=== PATIENT | male | born 1990 | race African-American/Black ===

== ENCOUNTER 2017-03-10 15:16 | Inpatient (IN) | payer OTHER ==
[2017-03-10 18:15] VITALS: BMI 24.2
--- NOTE | 2017-03-10 20:31 | HP ---
CIWA Score - CIWA Score Nausea/Vomitin-Mild Nausea/No Vomiting Muscle Tremors: 3 Anxiety: 3 Agitation: 3 Paroxysmal Sweats: 1-Minimal Palms Moist Orientation: 0-Oriented Tacttile Disturbances: 0-None Auditory Disturbances: 0-None Visual Disturbances: 0-None Headache: 3-Moderate CIWA-Ar Total Score: 14 Admission ROS BHS - HPI Chief Complaint: withdrawal sx Allergies/Adverse Reactions: Allergies Allergy/AdvReac Type Severity Reaction Status Date / Time No Known Allergies Allergy Verified 03/10/17 20:17 History of Present Illness: 26 years old male with long history of alcohol cocaine marijuana nicotine dependence has depression is admitted to detox Exam Limitations: No Limitations - Ebola screening Have you traveled outside of the country in the last 21 days: No Have you had contact with anyone from an Ebola affected area: No Have you been sick,other than usual withdrawal symptoms: No Do you have a fever: No - Review of Systems Constitutional: Chills, Changes in sleep, Weight Stable EENT: reports: No Symptoms Reported Respiratory: reports: No Symptoms reported Cardiac: reports: No Symptoms Reported GI: reports: Nausea, Poor Fluid Intake, Abdominal cramping : reports: No Symptoms Reported Musculoskeletal: reports: No Symptoms Reported Integumentary: reports: No Symptoms Reported Neuro: reports: Tremors Endocrine: reports: No Symptoms Reported Hematology: reports: No Symptoms Reported Psychiatric: reports: Judgement Intact, Orientated x3, Depressed Other Systems: Reviewed and Negative Patient History - Patient Medical History Hx Anemia: No Hx Asthma: No Hx Chronic Obstructive Pulmonary Disease (COPD): No Hx Cancer: No Hx Cardiac Disorders: No Hx Congestive Heart Failure: No Hx Hypertension: No Hx Hypercholesterolemia: No Hx Pacemaker: No HX Cerebrovascular Accident: No Hx Seizures: No Hx Dementia: No Hx Diabetes: No Hx Gastrointestinal Disorders: No Hx Liver Disease: No Hx Genitourinary Disorders: No Hx Sexually Transmitted Disorders: No Hx Renal Disease (ESRD): No Hx Thyroid Disease: No Hx Human Immunodeficiency Virus (HIV): No Hx Hepatitis C: No Hx Depression: Yes Hx Suicide Attempt: No Hx Bipolar Disorder: No Hx Schizophrenia: No - Patient Surgical History Past Surgical History: No Hx Neurologic Surgery: No Hx Cataract Extraction: No Hx Cardiac Surgery: No Hx Lung Surgery: No Hx Breast Surgery: No Hx Breast Biopsy: No Hx Abdominal Surgery: No Hx Appendectomy: No Hx Cholecystectomy: No Hx Genitourinary Surgery: No Hx Orthopedic Surgery: No - PPD History Previous Implant?: Yes Documented Results: Negative w/o proof Implanted On Prior R Admission?: No PPD to be Administered?: Yes - Smoking Cessation Smoking history: Current every day smoker Have you smoked in the past 12 months: Yes Aproximately how many cigarettes per day: 6 Cigars Per Day: 0 Hx Chewing Tobacco Use: No Initiated information on smoking cessation: Yes 'Breaking Loose' booklet given: 03/10/17 - Substance & Tx. History Hx Alcohol Use: Yes Hx Substance Use: Yes Substance Use Type: Alcohol, Cocaine, Marijuana Hx Substance Use Treatment: Yes - Substances Abused Alcohol Route: Oral Frequency: Daily Amount used: liquor- 3 pints, beer- 1 six pack Age of first use: 16 Date of Last Use: 03/10/17 Cocaine Route: Inhalation Frequency: Daily Amount used: 1 bags Age of first use: 23 Date of Last Use: 03/10/17 Marijuana/Hashish Route: Smoking Frequency: Daily Amount used: 8 joints Age of first use: 16 Date of Last Use: 03/10/17 Family Disease History - Family Disease History Family History: Unremarkable Admission Physical Exam BHS - Vital Signs Vital Signs: Vital Signs - 24 hr 03/10/17 18:13 Temperature 96.7 F L Pulse Rate 55 L Respiratory 16 Rate Blood Pressure 120/73 - Physical General Appearance: Yes: Nourished, Appropriately Dressed, Mild Distress, Tremorous, Irritable, Sweating, Anxious HEENTM: Yes: Hearing grossly Normal, Normal ENT Inspection, Normocephalic, Normal Voice Respiratory: Yes: Chest Non-Tender, Lungs Clear, Normal Breath Sounds, No Respiratory Distress, No Accessory Muscle Use Neck: Yes: Supple, Trachea in good position Breast: Yes: Breasts Symetrical Cardiology: Yes: Regular Rhythm, S1, S2, Bradycardia Abdominal: Yes: Non Tender, Soft Genitourinary: Yes: Within Normal Limits Back: Yes: Normal Inspection Musculoskeletal: Yes: full range of Motion, Gait Steady Extremities: Yes: Normal Inspection, Normal Range of Motion, Non-Tender, Tremors Neurological: Yes: Fully Oriented, Alert, Motor Strength 5/5, Normal Response, Depressed Affect Integumentary: Yes: Warm, Clammy Lymphatic: Yes: Within Normal Limits - Diagnostic (1) Alcohol dependence with uncomplicated withdrawal Current Visit: Yes Status: Acute (2) Cocaine dependence, uncomplicated Current Visit: Yes Status: Chronic (3) Cannabis dependence, uncomplicated Current Visit: Yes Status: Chronic (4) Nicotine dependence Current Visit: Yes Status: Acute Qualifiers: Nicotine product type: cigarettes Substance use status: in withdrawal Qualified Code(s): F17.213 - Nicotine dependence, cigarettes, with withdrawal (5) Depression (emotion) Current Visit: Yes Status: Suspected Qualifiers: Depression Type: dysthymia Qualified Code(s): F34.1 - Dysthymic disorder Cleared for Admission [facility] - Detox or Rehab [facility] Level of Care: Medically Managed Detox Regimen/Protocol: Librium [facility] Breath Alcohol Content Breath Alcohol Content: 0 Urine Drug Screen - Results Drug Screen Negative: No Urine Drug Screen Results: THC-Marijuana, DAVID-Cocaine
[2017-03-10] MEDS ORDERED: LOPERAMIDE HCL 2 MG CAPSULE PO PRN (20:32)
[2017-03-10] MEDS ORDERED: MAGNESIUM CITRATE 300 ML BOTTLE PO PRN (20:32)
[2017-03-10] MEDS ORDERED: NICOTINE POLACRILEX 2 MG GUM BUC PRN (20:32)
[2017-03-10] MEDS ORDERED: MAG HYDROX/AL HYDROX/SIMETH 30 ML UNIT-DOSE CUP PO PRN (20:32)
[2017-03-10] MEDS ORDERED: IBUPROFEN 400 MG TABLET (FP) PO PRN (20:32)
[2017-03-10] MEDS ORDERED: P-EPHED 60MG/TRIPROLIDI 2.5MG TABLET PO PRN (20:32)
[2017-03-10] MEDS ORDERED: MENTHOL/PHENOL 1 EACH UD MM PRN (20:32)
[2017-03-10] MEDS ORDERED: ACETAMINOPHEN 325 MG TABLET (FP) PO PRN (20:32)
[2017-03-10] MEDS ORDERED: MAGNESIUM HYDROX 2400MG/30ML ORAL SUSPENSION 30 ML CUP PO PRN (20:32)
[2017-03-10] MEDS ORDERED: chlordiazePOXIDE HCL 25 MG CAPSULE PO PRN (20:32)
[2017-03-10] MEDS ORDERED: hydrOXYzine PAMOATE 50 MG CAPSULE (FP) PO PRN (20:32)
[2017-03-10] MEDS ORDERED: guaiFENesin/D-METHORPHAN HB 10 ML UNIT-DOSE CUPS PO PRN (20:32)
[2017-03-10] MEDS: diphenhydrAMINE HCL 50 MG CAPSULE PO PRN (22:30)
[2017-03-10] MEDS: chlordiazePOXIDE HCL 25 MG CAPSULE PO SCH (22:30)
[2017-03-10] MEDS: THIAMINE HCL 100 MG TABLET (FP) PO SCH (22:30)
[2017-03-11 00:16] LABS: URINE APPEARANCE CLEAR; URINE BILIRUBIN NEGATIVE (NEGATIVE); URINE BLOOD NEGATIVE (NEGATIVE); URINE COLOR YELLOW; URINE GLUCOSE (UA) NEGATIVE (NEGATIVE); URINE KETONE NEGATIVE (NEGATIVE); URINE LEUK ESTERASE NEGATIVE (NEGATIVE); URINE NITRITE NEGATIVE (NEGATIVE); URINE PROTEIN NEGATIVE (NEGATIVE); URINE UROBILINOGEN NEGATIVE E.U./dl (0.2-1.0)
[2017-03-11] MEDS: chlordiazePOXIDE HCL 25 MG CAPSULE PO SCH ×4 (05:41→22:31)
[2017-03-11 10:32] LABS: MCH 32.9 pg (25.7-33.7); MCHC 33.7 g/dl (32.0-35.9); MEAN CELL VOLUME 97.4 fl (80-96); MEAN PLT VOLUME 9.1 fl (7.5-11.1); PLATELET COUNT 154 K/MM3 (134-434); RDW 12.9 % (11.9-15.9); WHITE BLOOD COUNT 5.2 K/mm3 (4.0-10.0)
[2017-03-11] MEDS: PRENATAL VITAMINS W/ FOLIC ACID TABLET (FP) PO SCH (10:40)
[2017-03-11] MEDS: NICOTINE 14 MG/24 HOURS TOPICAL PATCH TD SCH (10:40)
[2017-03-11 10:48] LABS: ALBUMIN 3.9 g/dl (3.4-5.0); ANION GAP 7 (8-16); CALCIUM 8.9 mg/dL (8.5-10.1); CO2 31 mmol/L (21-32)
[2017-03-11 10:54] LABS: ALK PHOS 58 U/L (45-117); BILIRUBIN,TOTAL 0.7 mg/dL (0.2-1.0); COCKROFT - GAULT 107.07; CREATININE 1.1 mg/dL (0.7-1.3); GLUCOSE,RANDOM 83 mg/dL (74-106); SGOT/AST 18 U/L (15-37); SGPT/ALT 18 U/L (12-78)
--- NOTE | 2017-03-11 12:03 | CONSULT ---
[facility] Psychiatric Consult - Data Date of interview: 03/11/17 Admission source: [facility] Identifying data: First admission to [facility] for this 26 y/o AA male seeking detox treatment for alcohol,cocaine and marijuana dependence.Patient is single, a father of two,domiciled,unemployed and deprived of any source of income. Substance Abuse History: - Smoking Cessation. Smoking history: Current every day smoker. Have you smoked in the past 12 months: Yes. Aproximately how many cigarettes per day: 6. Cigars Per Day: 0. Hx Chewing Tobacco Use: No. Initiated information on smoking cessation: Yes. 'Breaking Loose' booklet given : 03/10/17. - Substance & Tx. History. Hx Alcohol Use: Yes. Hx Substance Use : Yes. Substance Use Type: Alcohol, Cocaine, Marijuana. Hx Substance Use Treatment: Yes. - Substances Abused. Alcohol. Route: Oral. Frequency: Daily. Amount used: liquor- 3 pints, beer- 1 six pack. Age of first use: 16. Date of Last Use: 03/10/17. Cocaine. Route: Inhalation. Frequency: Daily. Amount used: 1 bags. Age of first use: 23. Date of Last Use: 03/10/17. Marijuana/Hashish. Route: Smoking. Frequency: Daily. Amount used: 8 joints. Age of first use: 16. Date of Last Use: 03/10/17. Confirmed by patient. Medical History: Patient endorses good general health. Psychiatric History: Patient denies. Physical/Sexual Abuse/Trauma History: Patient denies. Additional Comment: Urine Drug Screen Results: THC-Marijuana, DAVID-Cocaine.Noted. Mental Status Exam - Mental Status Exam Alert and Oriented to: Time, Place, Person Cognitive Function: Good Patient Appearance: Well Groomed Mood: Hopeful, Euthymic Affect: Appropriate, Normal Range Patient Behavior: Fatigued, Appropriate, Cooperative Speech Pattern: Clear Voice Loudness: Normal Thought Process: Goal Oriented Thought Disorder: Not Present Hallucinations: Denies Suicidal Ideation: Denies Homicidal Ideation: Denies Insight/Judgement: Poor Sleep: Well Appetite: Good Muscle strength/Tone: Normal Gait/Station: Normal Psychiatric Findings - Problem List ([place] 1, 2,3) (1) Alcohol dependence with uncomplicated withdrawal Current Visit: Yes Status: Acute (2) Cannabis dependence, uncomplicated Current Visit: Yes Status: Acute (3) Cocaine dependence, uncomplicated Current Visit: Yes Status: Acute (4) Nicotine dependence Current Visit: Yes Status: Acute Qualifiers: Nicotine product type: cigarettes Substance use status: in withdrawal Qualified Code(s): F17.213 - Nicotine dependence, cigarettes, with withdrawal - Initial Treatment Plan Initial Treatment Plan: Psychoeducation.Detoxification.Observation.
--- NOTE | 2017-03-11 15:38 | PN ---
S CIWA - CIWA Score Nausea/Vomitin-Mild Nausea/No Vomiting Muscle Tremors: 4-Moderate,w/Arms Extend Anxiety: 2 Agitation: 3 Paroxysmal Sweats: 2 Orientation: 0-Oriented Tacttile Disturbances: 2-Mild Itch/Numbness/Burn Auditory Disturbances: 0-None Visual Disturbances: 2-Mild Sensitivity Headache: 2-Mild CIWA-Ar Total Score: 18 BHS Progress Note (SOAP) Subjective: Tremors, Sweating. H/A. Objective: PT. A & O X 3, OBSERVED AMBULATING ON UNIT. 03/11/17 15:36 Vital Signs Temperature 98 F 03/11/17 13:32 Pulse Rate 54 L 03/11/17 13:32 Respiratory Rate 20 03/11/17 13:32 Blood Pressure 102/68 03/11/17 13:32 O2 Sat by Pulse Oximetry (%) Laboratory Last Values WBC 5.2 K/mm3 (4.0-10.0) 03/11/17 08:00 RBC 4.50 M/mm3 (4.00-5.60) 03/11/17 08:00 Hgb 14.8 GM/dL (11.7-16.9) 03/11/17 08:00 Hct 43.8 % (35.4-49) 03/11/17 08:00 MCV 97.4 fl (80-96) H 03/11/17 08:00 MCHC 33.7 g/dl (32.0-35.9) 03/11/17 08:00 RDW 12.9 % (11.9-15.9) 03/11/17 08:00 Plt Count 154 K/MM3 (134-434) 03/11/17 08:00 MPV 9.1 fl (7.5-11.1) 03/11/17 08:00 Sodium 140 mmol/L (136-145) 03/11/17 08:00 Potassium 4.0 mmol/L (3.5-5.1) 03/11/17 08:00 Chloride 102 mmol/L (98-107) 03/11/17 08:00 Carbon Dioxide 31 mmol/L (21-32) 03/11/17 08:00 Anion Gap 7 (8-16) L 03/11/17 08:00 BUN 10 mg/dL (7-18) 03/11/17 08:00 Creatinine 1.1 mg/dL (0.7-1.3) 03/11/17 08:00 Creat Clearance w eGFR > 60 (>60) 03/11/17 08:00 Random Glucose 83 mg/dL (74-106) 03/11/17 08:00 Calcium 8.9 mg/dL (8.5-10.1) 03/11/17 08:00 Total Bilirubin 0.7 mg/dL (0.2-1.0) 03/11/17 08:00 AST 18 U/L (15-37) 03/11/17 08:00 ALT 18 U/L (12-78) 03/11/17 08:00 Alkaline Phosphatase 58 U/L (45-117) 03/11/17 08:00 Total Protein 7.0 g/dl (6.4-8.2) 03/11/17 08:00 Albumin 3.9 g/dl (3.4-5.0) 03/11/17 08:00 Urine Color Yellow 03/10/17 21:16 Urine Appearance Clear 03/10/17 21:16 Urine pH 6.0 (5.0-8.0) 03/10/17 21:16 Ur Specific [place] 1.021 (1.001-1.035) 03/10/17 21:16 Urine Protein Negative (NEGATIVE) 03/10/17 21:16 Urine Glucose (UA) Negative (NEGATIVE) 03/10/17 21:16 Urine Ketones Negative (NEGATIVE) 03/10/17 21:16 Urine Blood Negative (NEGATIVE) 03/10/17 21:16 Urine Nitrite Negative (NEGATIVE) 03/10/17 21:16 Urine Bilirubin Negative (NEGATIVE) 03/10/17 21:16 Urine Urobilinogen Negative E.U./dl (0.2-1.0) 03/10/17 21:16 Ur Leukocyte Esterase Negative (NEGATIVE) 03/10/17 21:16 RPR Titer Nonreactive (NONREACTIVE) 03/11/17 08:00 LABS NOTED. Assessment: 03/11/17 15:37 WITHDRAWAL SYMPTOMS. Plan: CONTINUE DETOX. ADVISED PATIENT TO FOLLOW-UP WITH [facility] / REHAB MEDICAL PROVIDER AFTER DISCHARGE FROM DETOX FOR GENERAL MEDICAL ASSESSMENT AND FOR ABNORMAL ADMISSION LAB VALUES.
[2017-03-11] MEDS: THIAMINE HCL 100 MG TABLET (FP) PO SCH (22:31)
[2017-03-11] MEDS: diphenhydrAMINE HCL 50 MG CAPSULE PO PRN (22:32)
[2017-03-12] MEDS: chlordiazePOXIDE HCL 25 MG CAPSULE PO SCH ×3 (05:24→17:38)
[2017-03-12] MEDS: PRENATAL VITAMINS W/ FOLIC ACID TABLET (FP) PO SCH (10:23)
[2017-03-12] MEDS: NICOTINE 14 MG/24 HOURS TOPICAL PATCH TD SCH (10:24)
--- NOTE | 2017-03-12 11:11 | PN ---
[facility] Progress Note Note: Called by nurse, patient is signing out AMA, does not wish to complete detox, advised of risks and benefits Vital Signs - 24 hr 03/11/17 03/11/17 03/11/17 11:19 13:32 18:03 Temperature 98 F 98 F 97.9 F Pulse Rate 67 54 L 60 Respiratory 19 20 19 Rate Blood Pressure 106/77 102/68 101/60 03/11/17 03/12/17 03/12/17 21:40 00:30 03:30 Temperature 96.9 F L Pulse Rate 60 Respiratory 19 18 18 Rate Blood Pressure 104/68 03/12/17 03/12/17 06:12 10:25 Temperature 95.9 F L 97 F L Pulse Rate 75 62 Respiratory 18 18 Rate Blood Pressure 116/70 105/72 Laboratory Tests 03/10/17 03/11/17 03/11/17 21:16 08:00 08:00 WBC 5.2 RBC 4.50 Hgb 14.8 Hct 43.8 MCV 97.4 H MCHC 33.7 RDW 12.9 Plt Count 154 MPV 9.1 Sodium 140 Potassium 4.0 Chloride 102 Carbon Dioxide 31 Anion Gap 7 L BUN 10 Creatinine 1.1 Creat Clearance w eGFR > 60 Random Glucose 83 Calcium 8.9 Total Bilirubin 0.7 AST 18 ALT 18 Alkaline Phosphatase 58 Total Protein 7.0 Albumin 3.9 Urine Color Yellow Urine Appearance Clear Urine pH 6.0 Ur Specific [place] 1.021 Urine Protein Negative Urine Glucose (UA) Negative Urine Ketones Negative Urine Blood Negative Urine Nitrite Negative Urine Bilirubin Negative Urine Urobilinogen Negative Ur Leukocyte Esterase Negative RPR Titer 03/11/17 08:00 WBC RBC Hgb Hct MCV MCHC RDW Plt Count MPV Sodium Potassium Chloride Carbon Dioxide Anion Gap BUN Creatinine Creat Clearance w eGFR Random Glucose Calcium Total Bilirubin AST ALT Alkaline Phosphatase Total Protein Albumin Urine Color Urine Appearance Urine pH Ur Specific [place] Urine Protein Urine Glucose (UA) Urine Ketones Urine Blood Urine Nitrite Urine Bilirubin Urine Urobilinogen Ur Leukocyte Esterase RPR Titer Nonreactive patient is signing out AMA/
--- NOTE | 2017-03-12 11:13 | DS ---
[facility] Detox Discharge Summary Admission Date: 03/10/17 Discharge Date: 03/12/17 - History Present History: Alcohol Dependence, Cannabis Dependence, Cocaine Dependence Pertinent Past History: nicotine dependence with withdrawal sx, anxiety, insomnia, depression - Physical Exam Results Vital Signs: Vital Signs Temperature 97 F L 03/12/17 10:25 Pulse Rate 62 03/12/17 10:25 Respiratory Rate 18 03/12/17 10:25 Blood Pressure 105/72 03/12/17 10:25 O2 Sat by Pulse Oximetry (%) Pertinent Admission Physical Exam Findings: withdrawal sx present - Treatment Hospital Course: Detox Protocol Followed Patient has Accepted a Rehab Referral to: No - Medication Discharge Medications: Ambulatory Orders NK [No Known Home Medication] 03/10/17 - Diagnosis (1) Alcohol dependence with uncomplicated withdrawal Current Visit: Yes Status: Acute (2) Cannabis dependence, uncomplicated Current Visit: Yes Status: Acute (3) Cocaine dependence, uncomplicated Current Visit: Yes Status: Acute (4) Nicotine dependence Current Visit: Yes Status: Acute Qualifiers: Nicotine product type: cigarettes Substance use status: in withdrawal Qualified Code(s): F17.213 - Nicotine dependence, cigarettes, with withdrawal (5) Depression (emotion) Current Visit: Yes Status: Suspected Qualifiers: Depression Type: dysthymia Qualified Code(s): F34.1 - Dysthymic disorder - AMA Did Patient Leave Against Medical Advice: Yes
--- NOTE | 2017-03-12 11:19 | PN ---
BHS CIWA - CIWA Score Nausea/Vomitin Muscle Tremors: 4-Moderate,w/Arms Extend Anxiety: 4-Mod. Anxious/Guarded Agitation: 4-Moderately Restless Paroxysmal Sweats: 3 Orientation: 0-Oriented Tacttile Disturbances: 0-None Auditory Disturbances: 0-None Visual Disturbances: 0-None Headache: 0-None Present CIWA-Ar Total Score: 18 BHS Progress Note (SOAP) Subjective: nausea, sweats, interrupted sleep, anxiety, tremor Objective: 03/12/17 11:19 Vital Signs - 8 hr 03/12/17 03/12/17 03/12/17 03:30 06:12 10:25 Temperature 95.9 F L 97 F L Pulse Rate 75 62 Respiratory 18 18 18 Rate Blood Pressure 116/70 105/72 Laboratory Tests 03/10/17 03/11/17 03/11/17 21:16 08:00 08:00 WBC 5.2 RBC 4.50 Hgb 14.8 Hct 43.8 MCV 97.4 H MCHC 33.7 RDW 12.9 Plt Count 154 MPV 9.1 Sodium 140 Potassium 4.0 Chloride 102 Carbon Dioxide 31 Anion Gap 7 L BUN 10 Creatinine 1.1 Creat Clearance w eGFR > 60 Random Glucose 83 Calcium 8.9 Total Bilirubin 0.7 AST 18 ALT 18 Alkaline Phosphatase 58 Total Protein 7.0 Albumin 3.9 Urine Color Yellow Urine Appearance Clear Urine pH 6.0 Ur Specific [place] 1.021 Urine Protein Negative Urine Glucose (UA) Negative Urine Ketones Negative Urine Blood Negative Urine Nitrite Negative Urine Bilirubin Negative Urine Urobilinogen Negative Ur Leukocyte Esterase Negative RPR Titer 03/11/17 08:00 WBC RBC Hgb Hct MCV MCHC RDW Plt Count MPV Sodium Potassium Chloride Carbon Dioxide Anion Gap BUN Creatinine Creat Clearance w eGFR Random Glucose Calcium Total Bilirubin AST ALT Alkaline Phosphatase Total Protein Albumin Urine Color Urine Appearance Urine pH Ur Specific [place] Urine Protein Urine Glucose (UA) Urine Ketones Urine Blood Urine Nitrite Urine Bilirubin Urine Urobilinogen Ur Leukocyte Esterase RPR Titer Nonreactive Assessment: 03/12/17 11:19 withdrawal sx Plan: cont detox, fluids, encourage ambulation
--- NOTE | 2017-03-12 14:31 | EKG ---
Test Reason : Blood Pressure : / mmHG Vent. Rate : 043 BPM Atrial Rate : 043 BPM P-R Int : 166 ms QRS Dur : 114 ms QT Int : 492 ms P-R-T Axes : 058 075 053 degrees QTc Int : 415 ms MARKED SINUS BRADYCARDIA WITH SINUS ARRHYTHMIA ABNORMAL ECG NO PREVIOUS ECGS AVAILABLE BASELINE ARTIFACT Confirmed by TERRY BERRIOS, IFEANYI ([id number]) on 03/12/2017 2:30:43 PM Referred By: Confirmed By:IFEANYI STEWART MD
[2017-03-12] MEDS: diphenhydrAMINE HCL 50 MG CAPSULE PO PRN (22:41)
[2017-03-12] MEDS: THIAMINE HCL 100 MG TABLET (FP) PO SCH (22:41)
[2017-03-12] MEDS: chlordiazePOXIDE 5 MG CAPSULE PO SCH (23:16)
[2017-03-13] MEDS: chlordiazePOXIDE 5 MG CAPSULE PO SCH ×3 (06:02→17:17)
[2017-03-13] MEDS: PRENATAL VITAMINS W/ FOLIC ACID TABLET (FP) PO SCH (10:24)
[2017-03-13] MEDS: NICOTINE 14 MG/24 HOURS TOPICAL PATCH TD SCH (10:26)
--- NOTE | 2017-03-13 14:56 | PN ---
BHS Progress Note (SOAP) Subjective: Sweating,interrupted sleep,restless Objective: 03/13/17 14:55 Vital Signs - 8 hr 03/13/17 03/13/17 09:25 13:12 Temperature 97.4 F L 95.3 F L Pulse Rate 68 62 Respiratory 18 18 Rate Blood Pressure 110/68 117/70 Laboratory Last Values WBC 5.2 K/mm3 (4.0-10.0) 03/11/17 08:00 RBC 4.50 M/mm3 (4.00-5.60) 03/11/17 08:00 Hgb 14.8 GM/dL (11.7-16.9) 03/11/17 08:00 Hct 43.8 % (35.4-49) 03/11/17 08:00 MCV 97.4 fl (80-96) H 03/11/17 08:00 MCHC 33.7 g/dl (32.0-35.9) 03/11/17 08:00 RDW 12.9 % (11.9-15.9) 03/11/17 08:00 Plt Count 154 K/MM3 (134-434) 03/11/17 08:00 MPV 9.1 fl (7.5-11.1) 03/11/17 08:00 Sodium 140 mmol/L (136-145) 03/11/17 08:00 Potassium 4.0 mmol/L (3.5-5.1) 03/11/17 08:00 Chloride 102 mmol/L (98-107) 03/11/17 08:00 Carbon Dioxide 31 mmol/L (21-32) 03/11/17 08:00 Anion Gap 7 (8-16) L 03/11/17 08:00 BUN 10 mg/dL (7-18) 03/11/17 08:00 Creatinine 1.1 mg/dL (0.7-1.3) 03/11/17 08:00 Creat Clearance w eGFR > 60 (>60) 03/11/17 08:00 Random Glucose 83 mg/dL (74-106) 03/11/17 08:00 Calcium 8.9 mg/dL (8.5-10.1) 03/11/17 08:00 Total Bilirubin 0.7 mg/dL (0.2-1.0) 03/11/17 08:00 AST 18 U/L (15-37) 03/11/17 08:00 ALT 18 U/L (12-78) 03/11/17 08:00 Alkaline Phosphatase 58 U/L (45-117) 03/11/17 08:00 Total Protein 7.0 g/dl (6.4-8.2) 03/11/17 08:00 Albumin 3.9 g/dl (3.4-5.0) 03/11/17 08:00 Urine Color Yellow 03/10/17 21:16 Urine Appearance Clear 03/10/17 21:16 Urine pH 6.0 (5.0-8.0) 03/10/17 21:16 Ur Specific [place] 1.021 (1.001-1.035) 03/10/17 21:16 Urine Protein Negative (NEGATIVE) 03/10/17 21:16 Urine Glucose (UA) Negative (NEGATIVE) 03/10/17 21:16 Urine Ketones Negative (NEGATIVE) 03/10/17 21:16 Urine Blood Negative (NEGATIVE) 03/10/17 21:16 Urine Nitrite Negative (NEGATIVE) 03/10/17 21:16 Urine Bilirubin Negative (NEGATIVE) 03/10/17 21:16 Urine Urobilinogen Negative E.U./dl (0.2-1.0) 03/10/17 21:16 Ur Leukocyte Esterase Negative (NEGATIVE) 03/10/17 21:16 RPR Titer Nonreactive (NONREACTIVE) 03/11/17 08:00 Assessment: 03/13/17 14:55 Withdrawal sx. Plan: Continue detox
[2017-03-13] MEDS: chlordiazePOXIDE HCL 10 MG CAPSULE PO SCH (22:23)
[2017-03-13] MEDS: THIAMINE HCL 100 MG TABLET (FP) PO SCH (22:23)
[2017-03-13] MEDS: diphenhydrAMINE HCL 50 MG CAPSULE PO PRN (22:23)
[2017-03-14] MEDS: chlordiazePOXIDE HCL 10 MG CAPSULE PO SCH (05:13)
[2017-03-14 06:22] VITALS: BP 116/77; PULSE 58; TEMP 96.8
--- NOTE | 2017-03-14 13:49 | DS ---
[facility] Detox Discharge Summary Admission Date: 03/10/17 Discharge Date: 03/14/17 - History Present History: Alcohol Dependence, Cannabis Dependence, Cocaine Dependence Pertinent Past History: Denies - Physical Exam Results Vital Signs: Vital Signs Temperature 96.8 F L 03/14/17 06:22 Pulse Rate 58 L 03/14/17 06:22 Respiratory Rate 18 03/14/17 06:22 Blood Pressure 116/77 03/14/17 06:22 O2 Sat by Pulse Oximetry (%) Pertinent Admission Physical Exam Findings: Withdrawal sx. Laboratory Tests 03/10/17 03/11/17 03/11/17 21:16 08:00 08:00 WBC 5.2 RBC 4.50 Hgb 14.8 Hct 43.8 MCV 97.4 H MCHC 33.7 RDW 12.9 Plt Count 154 MPV 9.1 Sodium 140 Potassium 4.0 Chloride 102 Carbon Dioxide 31 Anion Gap 7 L BUN 10 Creatinine 1.1 Creat Clearance w eGFR > 60 Random Glucose 83 Calcium 8.9 Total Bilirubin 0.7 AST 18 ALT 18 Alkaline Phosphatase 58 Total Protein 7.0 Albumin 3.9 Urine Color Yellow Urine Appearance Clear Urine pH 6.0 Ur Specific [place] 1.021 Urine Protein Negative Urine Glucose (UA) Negative Urine Ketones Negative Urine Blood Negative Urine Nitrite Negative Urine Bilirubin Negative Urine Urobilinogen Negative Ur Leukocyte Esterase Negative RPR Titer 03/11/17 08:00 WBC RBC Hgb Hct MCV MCHC RDW Plt Count MPV Sodium Potassium Chloride Carbon Dioxide Anion Gap BUN Creatinine Creat Clearance w eGFR Random Glucose Calcium Total Bilirubin AST ALT Alkaline Phosphatase Total Protein Albumin Urine Color Urine Appearance Urine pH Ur Specific [place] Urine Protein Urine Glucose (UA) Urine Ketones Urine Blood Urine Nitrite Urine Bilirubin Urine Urobilinogen Ur Leukocyte Esterase RPR Titer Nonreactive labs noted - Treatment Hospital Course: Detox Protocol Followed, Detoxed Safely, Responded well, Discharged Condition Good, Rehab Referral Accepted Patient has Accepted a Rehab Referral to: [facility] - Medication Discharge Medications: Ambulatory Orders NK [No Known Home Medication] 03/10/17 - Diagnosis (1) Alcohol dependence with uncomplicated withdrawal Status: Acute (2) Cannabis dependence, uncomplicated Status: Acute (3) Cocaine dependence, uncomplicated Status: Acute (4) Nicotine dependence Status: Acute Qualifiers: Nicotine product type: cigarettes Substance use status: in withdrawal Qualified Code(s): F17.213 - Nicotine dependence, cigarettes, with withdrawal - AMA Did Patient Leave Against Medical Advice: No
== END 2017-03-14 08:52 | disposition home or self-care (01) | DRG 774 ==
LOC: YASAS 15:16 → Y3N 19:01
PROVIDERS: ADMIT Internal Medicine; ATTEND Internal Medicine
PROC: HZ2ZZZZ Detoxification Services for Substance Abuse Treatment (ICD-10-PCS; principal; 2017-03-10)
DX: F10.230 Alcohol dependence with withdrawal, uncomplicated (principal); F14.20 Cocaine dependence, uncomplicated; F12.20 Cannabis dependence, uncomplicated; F17.210 Nicotine dependence, cigarettes, uncomplicated; F34.1 Dysthymic disorder; R00.1 Bradycardia, unspecified
CPT/HCPCS: 36415; 80053; 81003; 85027; 86593; 93005; 93010